=== PATIENT | male | born 1955 | race Caucasian/White ===

== ENCOUNTER → 2019-09-24 08:13 | Outpatient (CLI) | payer OTHER, SELFPAY ==
[2019-09-24 08:10] VITALS: BMI 42.1
--- NOTE | 2019-09-24 08:13 | RAD_ITS ---
STUDY: X-RAY - LEFT KNEE REASON FOR EXAM: Male, 63 years old. knee pain TECHNIQUE: 4 view(s) of the knee including weight-bearing views. COMPARISON: Prior left knee radiographs of March 06, 2017 FINDINGS: Normal visualized distal femur. Normal visualized proximal tibia and fibula. Normal proximal tibiofibular articulation. There is no demonstrated fracture. Severe degenerative narrowing and moderate marginal osteophytosis of the medial compartment not substantially changed from the prior exam. Moderate degenerative arthrosis and marginal osteophytosis of the lateral compartment increased from the prior exam. Severe degenerative narrowing and marginal osteophytosis of the patellofemoral compartment not substantially changed from the prior exam. There is a soft tissue prominence in the suprapatellar region suggesting a small volume joint effusion. The soft tissue structures are unremarkable. RAD/Knee 4 or More Views IMPRESSION: Severe degenerative osteoarthritis of the medial and patellofemoral compartments not substantially changed from the preceding exam. Moderately advanced degenerative arthritis of the lateral compartment of the knee increased from previous exam. Small-volume joint effusion. Electronically Signed: Anna Kirby MD at 20:06 EST , Service support ,
== END ==
PROVIDERS: PCP Family Medicine; Referring Provider Orthopaedic Surgery; Visit Provider Orthopaedic Surgery
DX: M17.12 Unilateral primary osteoarthritis, left knee (principal)
CPT/HCPCS: 73564

== ENCOUNTER → 2024-10-13 | Outpatient (CLI) | payer MEDICARE, SELFPAY ==
--- NOTE | 2024-10-13 16:20 | CT_ITS ---
PROCEDURE: CT lumbar spine without IV contrast REASON FOR EXAM: Pain. TECHNIQUE: Multiple contiguous axial images through the lumbar spine were obtained without the administration of intravenous contrast. Two-dimensional coronal and sagittal reformatted images were reconstructed. Low-dose imaging technique was utilized. COMPARISON: None FINDINGS: Vertebral body heights are maintained. Negative for acute fracture or traumatic subluxation. Mild dextroscoliosis. Moderate to severe multilevel disc space narrowing with vacuum disc phenomenon. Moderate multilevel facet arthropathy. No paraspinal mass. Mild to moderate spinal stenosis from L1 through L5 due to posterior disc osteophyte complexes and facet arthropathy/ligamentum flavum hypertrophy. At least moderate multilevel foraminal narrowing throughout the lumbar spine with relative sparing at L5-S1. Foraminal narrowing is likely greatest at L3-L4 and L4-L5. Lower lumbar spine Baastrup's disease. Mild degenerative changes of the sacroiliac joints. There are no acute osseous abnormality. CT/Spine Lumbar without Contrast IMPRESSION: 1. No acute osseous abnormality. 2. Multilevel degenerative changes as above. One or more dose reduction techniques were used (e.g., Automated exposure contr ol, adjustment of the mA and/or kV according to patient size, use of iterative reconstruction technique). Reading Location: [facility]
== END | disposition home or self-care (01) ==
PROVIDERS: PCP Family Medicine; Referring Provider Clinical Nurse Specialist Adult Health; Visit Provider Clinical Nurse Specialist Adult Health
DX: M51.369 Other intervertebral disc degeneration, lumbar region without mention of lumbar back pain or lower extremity pain (principal)
CPT/HCPCS: 72131

== ENCOUNTER → 2025-02-19 | Outpatient (CLI) | payer MEDICARE, SELFPAY ==
--- NOTE | 2025-02-19 14:00 | MRI_ITS ---
PROCEDURE: SPINE LUMBAR (ROUTINE) 02/19/2025 REASON FOR EXAM: LOW BACK PAIN TECHNIQUE: SPINE LUMBAR (ROUTINE) FINDINGS: Heterogeneous signal intensity of the visualized bone marrow, probably osteopenia. Moderate chronic changes of Scheuermann's disease. Moderate chronic changes of Baastrup's disease. Moderate diffuse spondylosis. Findings are demonstrated by multifocal disc dehydration, disc space narrowing, osteophyte formation and degenerative endplate changes. Vertebrae: No acute fracture is identified. No abnormal pathologic bone marrow infiltration. Alignment: S shaped degenerative scoliosis. Conus Medullaris: Unremarkable at L1 level. T11-T12: Mild diffuse disc bulge. The spinal canal is mildly narrowed. Moderate bilateral neural foramina narrowing. T12-L1: Moderate diffuse disc bulge. The spinal canal is mildly narrowed. Moderate bilateral neural foramina narrowing. L1-2: Grade 1 retrolisthesis measuring 3.2 mm. Mild diffuse disc bulge. Bilateral facet joint arthropathy. The spinal canal is mildly narrowed. There is mild right and moderate left neural foraminal narrowing. L2-3: Grade 1 retrolisthesis measuring 3.4 mm. Mild diffuse disc bulge. Bilateral facet joint arthropathy and ligamentum flavum hypertrophy. The spinal canal is moderately narrowed. Moderate bilateral neural foraminal narrowing. L3-4: Grade 1 anterolisthesis measuring 3.5 mm. Mild diffuse disc bulge. Bilateral facet joint arthropathy and ligamentum flavum hypertrophy. The spinal canal is mildly narrowed. Mild bilateral neural foramina narrowing. L4-5: Grade 1 anterolisthesis measuring 3.6 mm with moderate diffuse disc bulge. Bilateral facet joint arthropathy and ligamentum flavum hypertrophy. The spinal canal is moderately narrowed. Moderate right and mild left neural foraminal narrowing. L5-S1: Mild diffuse disc bulge. Grade 1 anterolisthesis measuring 4.7 mm. Mild bilateral facet joint arthropathy. The spinal canal is not narrowed. Mild bilateral neural foramina narrowing. Sacrum: Unremarkable. MRI/Spine Lumbar (Routine) IMPRESSION: Spondylosis. Degenerative disc disease. Reading Location[facility]
== END | disposition home or self-care (01) ==
PROVIDERS: PCP Family Medicine; Referring Provider Orthopaedic Surgery Orthopaedic Surgery of the Spine; Visit Provider Orthopaedic Surgery Orthopaedic Surgery of the Spine
DX: M54.50 Low back pain, unspecified (principal)
CPT/HCPCS: 72148